=== PATIENT | female | born 1965 | race Caucasian/White ===

== ENCOUNTER → 2018-07-11 11:00 | Outpatient (CLI) | payer OTHER, SELFPAY | DX: Z23 Encounter for immunization (principal) | CPT/HCPCS: 90471; 90682 ==

== ENCOUNTER 2019-01-12 08:33 | Emergency (ER) | payer OTHER, SELFPAY ==
[2019-01-12 08:42] VITALS: BP 150/93; PULSE 58; RESP 18; TEMP 37; O2SAT 99; BMI 27.9
--- NOTE | 2019-01-12 08:56 | ED.LOWEXIN ---
HPI - Extremity Injury (Lower) General Chief Complaint: Extremity Injury, Lower Stated Complaint: rolled and dislocated rt ankle yesterday Time Seen by Provider: 01/12/19 08:55 Source: patient Mode of arrival: ambulatory Limitations: no limitations History of Present Illness HPI Narrative: this is a 53-year-old female who comes to the emergency department with complaint of right ankle pain. She states she was hiking with her dogs yesterday when she inverted her ankle. Patient states it got stuck and she had to pull on it to pull it back straight. She was able to walk back to her car. She states she has had a lot of ankle sprains in the past. This stitch she states feels a little bit different is a little bit more painful and she has pain in the ankle on both sides but also the arch of the foot and the pain radiates up her leg a little bit more. She has a lot more swelling than she typically has. She took ibuprofen last night, ice the area and kept it elevated. She has a walking boot at home that she has been using. She denies any other injuries. No tingling, no numbness or weakness. It is uncomfortable for her to dorsiflex, plantar flex or invert and aaron ankle. Related Data Previous Rx's Medication Instructions Recorded methylprednisolone 21 tab PO SEE INSTRUCTIONS #1 pac 10/11/17 azithromycin [Zithromax] 250 mg PO QDAY #6 tab 10/26/17 Allergies Allergy/AdvReac Type Severity Reaction Status Date / Time bee venom protein (honey bee) Allergy Severe swelling, Unverified 02/08/18 11:52 [BEE VENOM PROTEIN (HONEY tachycardia BEE)] pseudoephedrine Allergy Severe tachycardia Unverified 02/08/18 11:52 [PSEUDOEPHEDRINE] From EPHEDRA VULG Allergy Mild TACHYCARDIA Uncoded 02/08/18 11:52 TAPE Allergy Mild SKIN Uncoded 02/08/18 11:52 REACTION TETRACAINE Allergy Mild UNSURE Uncoded 02/08/18 11:52 Review of Systems Review of Systems ROS Unobtainable: All systems reviewed & are unremarkable except as noted in HPI and below Musculoskeletal Reports as per HPI, Reports arthralgias ( The right ankle), Reports joint swelling, Reports limited range of motion, Denies muscle weakness, Denies numbness, Reports stiffness ( ankle) and Denies tingling Integumentary/Breasts Denies erythema, Denies rash, Reports unusual bruising and Denies wounds Neurologic Denies focal weakness, Denies numbness, Denies sensory deficit and Denies tingling PFSH Surgical History H/O lateral meniscus repair of left knee (Chronic) H/O shoulder surgery (Chronic) Hx of appendectomy (Chronic) Hx of cholecystectomy (Chronic) Social History Smoking Status: Never smoker Social History Smoking Status: Never smoker Exam Narrative Exam Narrative: GENERAL: Alert and oriented x three, well-nourished, well-appearing female in mild distress. HEENT: Head normocephalic, atraumatic, EOMI, pupils reactive, face symmetric, moist mucous membranes NECK: Supple, full range of motion EXTREMITIES: Patient has mild tenderness over the medial lateral malleoli as well as beneath the arch of the foot, there is no bony tenderness of the metatarsals or toes. Patient has extensive bruising over the lateral ankle and into the foot. Patient has swelling of the ankle throughout and into the foot but does not involve the toes. Patient has normal sensation throughout the foot. She has 2+ dorsalis pedis. She has cap refill less than 2 sec in all 5 toes. Patient is able to dorsiflex and plantar flex as well as invert and aaron although she decreases the range of these movements. no clubbing. Neurovascularly intact NEUROLOGICAL: Cranial nerves II through XII grossly intact. Moving all extremities SKIN: Warm, dry, no petechiae, no rashes or lesions. Initial Vital Signs Initial Vital Signs: Vital Signs Temperature 98.6 F 01/12/19 08:42 Pulse Rate 58 L 01/12/19 08:42 Respiratory Rate 18 01/12/19 08:42 Blood Pressure 150/93 H 01/12/19 08:42 Pulse Oximetry 99 01/12/19 08:42 Course Orders Ordered: ED Orders 01/12/19 09:08 XR ankle RT min 3V Stat Vital Signs - 8 hr 01/12/19 08:42 01/12/19 09:46 Temperature 98.6 F Pulse Rate 58 L 74 Respiratory Rate 18 18 Blood Pressure 150/93 H 120/75 Pulse Oximetry [address] [facility] - Extremity Injury (Lower) Imaging Data right ankle xray: Radiologist's impression: [address] [address] XRay Report Signed Patient: Rosemarie NamMR#: [id number] : 1965Acct:[id number] Age/Sex: 53 / FDate of Service: 01/12/19 Loc: ED Accession Number: [id number] Procedure: XR ankle RT min 3V Ordering Provider: Carmina Lundbreg D.O. PROCEDURE: XR ANKLE RT MIN 3V INDICATIONS: right ankle rolled, got stuck yesterday, TECHNIQUE: 3 views of the ankle were acquired. COMPARISON: None. FINDINGS: Bones: No fractures or dislocations. Ankle mortise is normally aligned. No suspicious bony lesions. Calcaneal spurring. Soft tissues: No tibiotalar joint effusion. Achilles tendon appears normal. Soft tissue swelling overlies the lateral malleolus without evidence of displaced fracture. IMPRESSION: No acute fracture. No osseous lesion. If symptoms and/or clinical suspicion for pathology persist, further assessment with repeat, or advanced imaging (e.g., CT, MRI, or bone scan) may be helpful for further assessment. Dictated by: Vlad Rao M.D. on 01/12/2019 at 9:31 Approved by: Vlad Rao M.D. on 01/12/2019 at 9:[address] [facility] Narrative Medical decision making narrative: Patient follow with Dr. Adams for multiple orthopedic injuries. She has her own walking boot/aircast with her and weightbares without issue. Plan for follow up as needed. Discharge Plan Departure Patient Disposition: Home Clinical Impression: Ankle sprain and strain Discharge Date/Time: 01/12/19 09:48 Interventions: ED Discharge Assessment Last Done: 01/12/19 09:46 Instructions: DI for Ankle Sprain Activity Restrictions/Additional Instructions: Follow up with your primary care or if you prefer your orthopedic surgeon if your symptoms are not improving. Continue ibuprofen up to 800 mg every 8 hr as needed. Splint Care: Keep splint clean and dry. Elevated affected body part to decrease swelling. OK to use ice pack on the affected body part. Use for 15-20 minutes each time, for 5-6x per day. If you develop worsening pain, numbness, tingling, discoloration of the affected body part, loosen the splint by loosening the AUGUSTINA wrap, and either see your doctor for an urgent re-assessment, or return to the Emergency Department. Return to the Emergency Department for any new or worsening symptoms. Prescriptions: No Action methylprednisolone 4 MG tablets,dose pack 21 tab PO SEE INSTRUCTIONS Qty: 1 RF: 0 azithromycin [Zithromax] 250 MG tablet 250 mg PO QDAY Qty: 6 RF: 0
--- NOTE | 2019-01-12 09:08 | DI.RAD.S_ITS ---
PROCEDURE: XR ANKLE RT MIN 3V INDICATIONS: right ankle rolled, got stuck yesterday, TECHNIQUE: 3 views of the ankle were acquired. COMPARISON: None. FINDINGS: Bones: No fractures or dislocations. Ankle mortise is normally aligned. No suspicious bony lesions. Calcaneal spurring. Soft tissues: No tibiotalar joint effusion. Achilles tendon appears normal. Soft tissue swelling overlies the lateral malleolus without evidence of displaced fracture. IMPRESSION: No acute fracture. No osseous lesion. If symptoms and/or clinical suspicion for pathology persist, further assessment with repeat, or advanced imaging (e.g., CT, MRI, or bone scan) may be helpful for further assessment. Dictated by: Vlad Rao M.D. on 01/12/2019 at 9:31 Approved by: Vlad Rao M.D. on 01/12/2019 at 9:32
--- NOTE | 2019-01-12 09:14 | ED_ITS ---
HPI - Extremity Injury (Lower) General Chief Complaint: Extremity Injury, Lower Stated Complaint: rolled and dislocated rt ankle yesterday Time Seen by Provider: 01/12/19 08:55 Source: patient Mode of arrival: ambulatory Limitations: no limitations History of Present Illness HPI Narrative: this is a 53-year-old female who comes to the emergency department with complaint of right ankle pain. She states she was hiking with her dogs yesterday when she inverted her ankle. Patient states it got stuck and she had to pull on it to pull it back straight. She was able to walk back to her car. She states she has had a lot of ankle sprains in the past. This stitch she states feels a little bit different is a little bit more painful and she has pain in the ankle on both sides but also the arch of the foot and the pain radiates up her leg a little bit more. She has a lot more swelling than she typically has. She took ibuprofen last night, ice the area and kept it elevated. She has a walking boot at home that she has been using. She denies any other injuries. No tingling, no numbness or weakness. It is uncomfortable for her to dorsiflex, plantar flex or invert and aaron ankle. Related Data Previous Rx's Medication Instructions Recorded methylprednisolone 21 tab PO SEE INSTRUCTIONS #1 pac 10/11/17 azithromycin [Zithromax] 250 mg PO QDAY #6 tab 10/26/17 Allergies Allergy/AdvReac Type Severity Reaction Status Date / Time bee venom protein (honey bee) Allergy Severe swelling, Unverified 02/08/18 11:52 [BEE VENOM PROTEIN (HONEY tachycardia BEE)] pseudoephedrine Allergy Severe tachycardia Unverified 02/08/18 11:52 [PSEUDOEPHEDRINE] From EPHEDRA VULG Allergy Mild TACHYCARDIA Uncoded 02/08/18 11:52 TAPE Allergy Mild SKIN Uncoded 02/08/18 11:52 REACTION TETRACAINE Allergy Mild UNSURE Uncoded 02/08/18 11:52 Review of Systems Review of Systems ROS Unobtainable: All systems reviewed & are unremarkable except as noted in HPI and below Musculoskeletal Reports as per HPI, Reports arthralgias ( The right ankle), Reports joint swelling, Reports limited range of motion, Denies muscle weakness, Denies numbness, Reports stiffness ( ankle) and Denies tingling Integumentary/Breasts Denies erythema, Denies rash, Reports unusual bruising and Denies wounds Neurologic Denies focal weakness, Denies numbness, Denies sensory deficit and Denies tingling PFSH Surgical History H/O lateral meniscus repair of left knee (Chronic) H/O shoulder surgery (Chronic) Hx of appendectomy (Chronic) Hx of cholecystectomy (Chronic) Social History Smoking Status: Never smoker Social History Smoking Status: Never smoker Exam Narrative Exam Narrative: GENERAL: Alert and oriented x three, well-nourished, well- appearing female in mild distress. HEENT: Head normocephalic, atraumatic, EOMI, pupils reactive, face symmetric, moist mucous membranes NECK: Supple, full range of motion EXTREMITIES: Patient has mild tenderness over the medial lateral malleoli as well as beneath the arch of the foot, there is no bony tenderness of the metatarsals or toes. Patient has extensive bruising over the lateral ankle and into the foot. Patient has swelling of the ankle throughout and into the foot but does not involve the toes. Patient has normal sensation throughout the foot. She has 2+ dorsalis pedis. She has cap refill less than 2 sec in all 5 toes. Patient is able to dorsiflex and plantar flex as well as invert and aaron although she decreases the range of these movements. no clubbing. Neurovascularly intact NEUROLOGICAL: Cranial nerves II through XII grossly intact. Moving all extremities SKIN: Warm, dry, no petechiae, no rashes or lesions. Initial Vital Signs Initial Vital Signs: Vital Signs Temperature 98.6 F 01/12/19 08:42 Pulse Rate 58 L 01/12/19 08:42 Respiratory Rate 18 01/12/19 08:42 Blood Pressure 150/93 H 01/12/19 08:42 Pulse Oximetry 99 01/12/19 08:42 Course Orders Ordered: ED Orders 01/12/19 09:08 XR ankle RT min 3V Stat Vital Signs - 8 hr 01/12/19 08:42 01/12/19 09:46 Temperature 98.6 F Pulse Rate 58 L 74 Respiratory Rate 18 18 Blood Pressure 150/93 H 120/75 Pulse Oximetry 99 99 [facility] - Extremity Injury (Lower) Imaging Data right ankle xray: Radiologist's impression: [address] [address] XRay Report Signed Patient: Rosemarie NamMR#: [id number] : 1965Acct:[id number] Age/Sex: 53 / FDate of Service: 01/12/19 Loc: ED Accession Number: [id number] Procedure: XR ankle RT min 3V Ordering Provider: Carmina Lundberg D.O. PROCEDURE: XR ANKLE RT MIN 3V INDICATIONS: right ankle rolled, got stuck yesterday, TECHNIQUE: 3 views of the ankle were acquired. COMPARISON: None. FINDINGS: Bones: No fractures or dislocations. Ankle mortise is normally aligned. No suspicious bony lesions. Calcaneal spurring. Soft tissues: No tibiotalar joint effusion. Achilles tendon appears normal. Soft tissue swelling overlies the lateral malleolus without evidence of displaced fracture. IMPRESSION: No acute fracture. No osseous lesion. If symptoms and/or clinical suspicion for pathology persist, further assessment with repeat, or advanced imaging (e.g., CT, MRI, or bone scan) may be helpful for further assessment. Dictated by: Vlad Rao M.D. on 01/12/2019 at 9:31 Approved by: Vlad Rao M.D. on 01/12/2019 at 9:32 [facility] Narrative Medical decision making narrative: Patient follow with Dr. Adams for multiple orthopedic injuries. She has her own walking boot/aircast with her and weightbares without issue. Plan for follow up as needed. Discharge Plan Departure Patient Disposition: Home Clinical Impression: Ankle sprain and strain Discharge Date/Time: 01/12/19 09:48 Interventions: ED Discharge Assessment Last Done: 01/12/19 09:46 Instructions: DI for Ankle Sprain Activity Restrictions/Additional Instructions: Follow up with your primary care or if you prefer your orthopedic surgeon if your symptoms are not improving. Continue ibuprofen up to 800 mg every 8 hr as needed. Splint Care: Keep splint clean and dry. Elevated affected body part to decrease swelling. OK to use ice pack on the affected body part. Use for 15-20 minutes each time, for 5-6x per day. If you develop worsening pain, numbness, tingling, discoloration of the affected body part, loosen the splint by loosening the AUGUSTINA wrap, and either see your doctor for an urgent re-assessment, or return to the Emergency Department. Return to the Emergency Department for any new or worsening symptoms. Prescriptions: No Action methylprednisolone 4 MG tablets,dose pack 21 tab PO SEE INSTRUCTIONS Qty: 1 RF: 0 azithromycin [Zithromax] 250 MG tablet 250 mg PO QDAY Qty: 6 RF: 0
[2019-01-12 09:46] VITALS: BP 120/75; PULSE 74; RESP 18; O2SAT 99
== END 2019-01-12 09:48 | disposition home or self-care (01) ==
PROVIDERS: Emergency Provider Emergency Medicine
DX: S93.401A Sprain of unspecified ligament of right ankle, initial encounter (principal)
CPT/HCPCS: 73610; 99282; 99283

== ENCOUNTER → 2019-08-07 14:25 | Outpatient (CLI) | payer OTHER, SELFPAY | DX: Z23 Encounter for immunization (principal) | CPT/HCPCS: 90471; 90682 ==

== ENCOUNTER → 2020-07-31 | Outpatient (CLI) | payer OTHER, SELFPAY | PROVIDERS: Referring Provider Internal Medicine; Visit Provider Internal Medicine | DX: Z23 Encounter for immunization (principal) | CPT/HCPCS: 90471; 90682 ==

== ENCOUNTER → 2020-09-23 08:19 | Outpatient (CLI) | payer OTHER, SELFPAY ==
--- NOTE | 2020-09-23 08:21 | DI.RAD.S_ITS ---
PROCEDURE: XR CHEST 2V INDICATIONS: cough TECHNIQUE: 2 views of the chest were acquired. COMPARISON: None. FINDINGS: Surgical changes and devices: None. Lungs and pleura: Lungs are clear. No pleural effusions or pneumothorax. Mediastinum: Mediastinal contours are normal. Heart size is normal. Bones and chest wall: No suspicious bony abnormalities. Soft tissues appear unremarkable. IMPRESSION: Normal for age, source of current cough symptoms is not seen. Dictated by: Sohan Mazariegos M.D. on 09/23/2020 at 9:05 Approved by: Sohan Mazariegos M.D. on 09/23/2020 at 9:05
== END ==
PROVIDERS: Referring Provider Physician Assistant; Visit Provider Physician Assistant
DX: R05 Cough (principal); Z11.59 Encounter for screening for other viral diseases
CPT/HCPCS: 71046; 87635

== ENCOUNTER → 2020-09-23 09:12 | Outpatient (CLI) | payer OTHER, SELFPAY ==
[2020-09-23 09:37] LABS: COVID19 -Nasal RAPID Negative (Negative)
== END ==
PROVIDERS: Visit Provider Physician Assistant
DX: Z11.59 Encounter for screening for other viral diseases (principal)
CPT/HCPCS: 87635

== ENCOUNTER → 2020-11-05 08:26 | Outpatient (CLI) | payer OTHER, SELFPAY ==
[2020-11-05] MEDS: COVID-19 VACC(MODERNA-1)/PF 100 MCG/0.5 ML VIAL IM (08:31)
== END ==
PROVIDERS: Visit Provider Internal Medicine
DX: Z23 Encounter for immunization (principal)
CPT/HCPCS: 0011A; 91301

== ENCOUNTER → 2020-12-02 08:25 | Outpatient (CLI) | payer OTHER, SELFPAY ==
[2020-12-02] MEDS: COVID-19 VACC #2, MRNA(MOD) 100 MCG/0.5 ML VIAL IM (08:29)
== END ==
PROVIDERS: Visit Provider Internal Medicine
DX: Z23 Encounter for immunization (principal)
CPT/HCPCS: 0012A; 91301

== ENCOUNTER → 2021-07-30 13:25 | Outpatient (CLI) | payer OTHER, SELFPAY ==
[2021-07-30 14:11] LABS: COVID19 -Nasal RAPID Negative (Negative)
== END ==
PROVIDERS: Visit Provider Nurse Practitioner Family
DX: Z20.822 Contact with and (suspected) exposure to COVID-19 (principal)
CPT/HCPCS: 87635

== ENCOUNTER → 2021-08-04 11:31 | Outpatient (CLI) | payer OTHER, SELFPAY ==
[2021-08-04 14:06] LABS: COVID19 -Nasal RAPID Negative (Negative)
== END ==
PROVIDERS: Visit Provider Nurse Practitioner Family
DX: Z20.822 Contact with and (suspected) exposure to COVID-19 (principal)
CPT/HCPCS: 87635

== ENCOUNTER → 2021-08-06 | Outpatient (CLI) | payer OTHER, SELFPAY | PROVIDERS: Referring Provider Internal Medicine; Visit Provider Internal Medicine | DX: Z23 Encounter for immunization (principal) | CPT/HCPCS: 90471; 90682 ==

== ENCOUNTER → 2021-08-09 09:06 | Outpatient (CLI) | payer OTHER, SELFPAY ==
[2021-08-09 09:42] LABS: COVID19 -Nasal RAPID Negative (Negative)
== END ==
PROVIDERS: Visit Provider Nurse Practitioner Family
DX: Z20.822 Contact with and (suspected) exposure to COVID-19 (principal)
CPT/HCPCS: 87635

== ENCOUNTER → 2022-07-27 09:00 | Outpatient (CLI) | payer OTHER, SELFPAY | PROVIDERS: Referring Provider Internal Medicine; Visit Provider Internal Medicine | DX: Z23 Encounter for immunization (principal) | CPT/HCPCS: 90471; 90682 ==